=== PATIENT | female | born 1955 | race Caucasian/White ===

== ENCOUNTER 2019-12-05 11:05 | Inpatient (IN) ==
[2019-12-05] MEDS ORDERED: 0.9 % Sodium Chloride 1,000 ML IVC ONE (11:11)
[2019-12-05] MEDS ORDERED: *HR* Ticagrelor 90 MG TABLET PO ONE (11:11)
[2019-12-05] MEDS ORDERED: *HR* Heparin 5,000 UNIT/ML VIAL IVP ONE (11:11)
[2019-12-05] MEDS ORDERED: Heparin 25,000 UNIT/250 ML D5W 25,000 UNIT/250 ML IV.SOLN IVC SCH (11:15)
[2019-12-05] MEDS ORDERED: *HR* Heparin 5,000 UNIT/ML VIAL ONE (11:17)
[2019-12-05] MEDS ORDERED: *HR* Ticagrelor 90 MG TABLET ONE (11:17)
[2019-12-05] MEDS ORDERED: Amiodarone Premix 360 MG/200 ML BAG IVC ONE (11:22)
[2019-12-05] MEDS ORDERED: Amiodarone Premix 150 MG/100 ML BAG IVPB ONE (11:22)
[2019-12-05 11:25] LABS: Basophils # 0.1 K/mcL (0.0-0.2); Basophils % 0.8 %; Eosinophils # 0.4 K/mcL (0.0-0.6); Eosinophils % 2.5 %; Hemoglobin 13.8 g/dL (11.5-15.4); Immature Granulocytes % 0.6 % (0-4); Lymphocytes # 2.1 K/mcL (0.6-4.6); Lymphocytes % 14.2 %; Mean Corpuscular HGB Conc 34.5 g/dL (31.6-35.5); Mean Corpuscular Hemoglobin 34.9 pg (28.0-33.3); Mean Corpuscular Volume 101.3 fL (83.0-100.0); Mean Platelet Volume 8.9 fL (9.4-12.4); Monocytes # 0.8 K/mcL (0.0-1.3); Monocytes % 5.2 %; Neutrophils # 11.2 K/mcL (1.6-8.9); Platelet Count 351 K/mcL (140-400); Red Blood Count 3.95 M/mcL (3.82-4.97); Red Cell Distribution Width 13.1 % (11.5-14.5); Segmented Neutrophils % 76.7 %; White Blood Count 14.6 K/mcL (4.3-11.1)
[2019-12-05 11:33] LABS: Prothrombin Time 10.8 Seconds (9.4-12.1)
[2019-12-05] MEDS ORDERED: Heparin 1,000 UNITS/500 mL 500 ML ONE (11:33)
[2019-12-05] MEDS ORDERED: Nitroglycerin 1,000 MCG/10 ML VIAL IV ONE (11:33)
[2019-12-05] MEDS ORDERED: ISOVUE-370 200 ML INFUS..BTL ONE ×2 (11:33→11:43)
[2019-12-05] MEDS ORDERED: *HR* Heparin 10,000 UNIT/10 ML VIAL ONE (11:33)
[2019-12-05] MEDS ORDERED: 0.9 % Sodium Chloride 1,000 ML ONE ×2 (11:33→11:56)
[2019-12-05 11:36] LABS: Activated Partial Thrombo Time 31.8 Seconds (26.0-36.0)
[2019-12-05] MEDS ORDERED: *HR* Midazolam HCl 2 MG/2 ML VIAL ONE (11:42)
[2019-12-05] MEDS ORDERED: *HR* FentaNYL (PF) 100 MCG/2 ML VIAL ONE (11:43)
[2019-12-05 11:47] LABS: BUN/Creatinine Ratio 16 (6-26); Blood Urea Nitrogen 10 mg/dL (8-23); Calcium 9.5 mg/dL (8.6-10.3); Carbon Dioxide 26 mEq/L (23-29); Chloride 101 mEq/L (98-107); Creatine Kinase 81 Units/L (30-223); Glucose 205 mg/dL (70-105); Magnesium 1.8 mg/dL (1.6-2.6); Osmolality,Calculated 287 (280-300); Potassium 3.7 mEq/L (3.5-5.1); Sodium 136 mEq/L (136-145); eGFR For African Americans > 60 (> 60); eGFR For Non-African Americans > 60 (> 60)
[2019-12-05] MEDS ORDERED: Perflutren Lipid Microsphere 1.3 ML in 0.9 % Sodium Chloride 8.7 ML IVP PRN (11:53)
[2019-12-05 11:58] LABS: Troponin I 0.18 ng/mL (< 0.04)
[2019-12-05] MEDS ORDERED: Tirofiban 12.5 MG/250ML 12.5 MG/250 ML BAG IVC SCH (12:00)
[2019-12-05] MEDS ORDERED: Tirofiban 12.5 MG/250ML 12.5 MG/250 ML BAG ONE (12:02)
[2019-12-05] MEDS ORDERED: *HR* Atropine Sulfate 1 MG/10 ML SYRINGE ONE (12:06)
[2019-12-05] MEDS ORDERED: *HR* LORazepam 0.5 MG TABLET PO ONE (15:08)
[2019-12-05] MEDS ORDERED: Amiodarone Premix 360 MG/200 ML BAG IVC SCH (17:30)
[2019-12-05] MEDS: *HR* Ticagrelor 90 MG TABLET PO SCH (21:09)
[2019-12-05] MEDS ORDERED: Gabapentin 300 MG CAPSULE PO ONE (21:47)
[2019-12-05] MEDS ORDERED: Acetaminophen 325 MG TABLET PO ONE (23:22)
[2019-12-06 06:02] LABS: Basophils # 0.1 K/mcL (0.0-0.2); Basophils % 0.8 %; Eosinophils # 0.7 K/mcL (0.0-0.6); Eosinophils % 5.1 %; Hematocrit 36.6 % (35.3-44.9); Hemoglobin 12.7 g/dL (11.5-15.4); Immature Granulocytes % 0.4 % (0-4); Lymphocytes # 2.8 K/mcL (0.6-4.6); Mean Corpuscular HGB Conc 34.7 g/dL (31.6-35.5); Mean Corpuscular Volume 97.9 fL (83.0-100.0); Mean Platelet Volume 9.1 fL (9.4-12.4); Monocytes # 1.2 K/mcL (0.0-1.3); Monocytes % 9.1 %; Neutrophils # 7.9 K/mcL (1.6-8.9); Platelet Count 343 K/mcL (140-400); Red Blood Count 3.74 M/mcL (3.82-4.97); Red Cell Distribution Width 13.1 % (11.5-14.5); Segmented Neutrophils % 62.6 %; White Blood Count 12.7 K/mcL (4.3-11.1)
[2019-12-06 06:13] LABS: BUN/Creatinine Ratio 13 (6-26); Blood Urea Nitrogen 8 mg/dL (8-23); Calcium 9.2 mg/dL (8.6-10.3); Carbon Dioxide 31 mEq/L (23-29); Chloride 101 mEq/L (98-107); Glucose 94 mg/dL (70-105); Osmolality,Calculated 282 (280-300); Potassium 4.7 mEq/L (3.5-5.1); Sodium 137 mEq/L (136-145); eGFR For African Americans > 60 (> 60); eGFR For Non-African Americans > 60 (> 60)
[2019-12-06] MEDS: *HR* Ticagrelor 90 MG TABLET PO SCH ×2 (08:36→20:17)
[2019-12-06] MEDS ORDERED: Metoprolol XL (24 HR) Succ 25 MG TAB.ER.24H PO SCH (09:00)
[2019-12-06] MEDS ORDERED: Aspirin 81 MG TAB.CHEW PO SCH (09:00)
[2019-12-06] MEDS ORDERED: Celecoxib 200 MG CAPSULE PO SCH (11:00)
[2019-12-06] MEDS ORDERED: valACYclovir 500 MG TABLET PO SCH (11:00)
[2019-12-06] MEDS ORDERED: Gabapentin 300 MG CAPSULE PO SCH ×2 (11:00→21:00)
[2019-12-06] MEDS ORDERED: Perflutren Lipid Microsphere 1.3 ML in 0.9 % Sodium Chloride 8.7 ML IVP PRN (12:40)
[2019-12-06] MEDS: *HR* Heparin 5,000 UNIT/ML VIAL SQ SCH (17:55)
[2019-12-06] MEDS ORDERED: *HR* Heparin 5,000 UNIT/ML VIAL SQ SCH (18:00)
[2019-12-07] MEDS: *HR* Heparin 5,000 UNIT/ML VIAL SQ SCH (05:37)
[2019-12-07] MEDS ORDERED: Thyroid (Amour) 30 MG TABLET PO SCH ×2 (06:30→09:00)
[2019-12-07] MEDS ORDERED: Celecoxib 200 MG CAPSULE PO SCH (09:00)
[2019-12-07] MEDS ORDERED: valACYclovir 500 MG TABLET PO SCH (09:00)
[2019-12-07] MEDS ORDERED: Aspirin 81 MG TAB.CHEW PO SCH (09:00)
[2019-12-07] MEDS ORDERED: Metoprolol XL (24 HR) Succ 25 MG TAB.ER.24H PO SCH (09:00)
[2019-12-07] MEDS: *HR* Ticagrelor 90 MG TABLET PO SCH (09:55)
[2019-12-07 11:13] VITALS: BP 107/71
== END 2019-12-07 14:41 | disposition home or self-care (01) | DRG 247 ==
LOC: EMEROOARM 11:05 → ICNU 11:50 → 2NNU 12-06 12:35
PROVIDERS: ADMIT Internal Medicine Cardiovascular Disease; ATTEND Internal Medicine Cardiovascular Disease